=== PATIENT | male | born 1985 | race Caucasian/White ===

== ENCOUNTER 2025-06-07 14:47 | Inpatient (IN) | payer MEDICAID, OTHER ==
[~2025-06-07] VITALS: Ht 170.2 cm; Wt 75.6 kg
--- NOTE | 2025-06-07 15:32 | ED.PDOC ---
Eye-HPI HPI Comments This is a 40 year-old male who presents to the ED with a chief complaint of right upper dental pain as of X1 week ago. Patient reports symptoms worsening since, with additional facial swelling, difficulty swallowing, tooth drainage/ bleeding, fever, R eye puffiness, and N/V as of X2 days ago. Patient reports taking amoxicillin for X5 days with no relief noted. Patient denies any recent trauma, injury, or surgeries. Patient otherwise denies headache, SOB, weakness, chills, hematemesis, or cough. No other complaints or modifying factors at this time. Chief Complaint: Tooth Pain Time Seen by MD: 15:30 Reviewed Notes: Nurses Notes, Medications, Allergies Allergies: Coded Allergies: NO KNOWN ALLERGIES (Unverified , 06/07/25) Information Source: Patient Mode of Arrival: Ambulatory Timing: Weeks Duration: Since onset Prehospital treatment: None Quality: Pain Mouth Location: Right, Upper, Tooth/Teeth (TOOTH 10) Onset: Spontaneous Associated signs and symptoms: Tooth Pain, Other (facial swelling, N/V/D, fever, difficulty swallowing ) Past Medical History PAST MEDICAL HISTORY: Denies Surgical History (Other): Right shoulder x2 Family History Family History: Reviewed,noncontributory to illness, No family hx of Cancer, No family hx of DM, No family hx of Heart bre, No family hx of HTN, No family hx ofKidney bre, No family hx of Liver bre, No family hx of Lung bre, No family hx of Stroke Social History Smoker: Non-Smoker Alcohol: Denies ETOH Use Drugs: Denies Drug Use Lives In: Home Constitutional: reports: fever; denies: chills, diaphoresis, fatigue, malaise, sweats, weakness, others EENTM: reports: mouth pain, others (facial swelling, difficulty swallowing, R eye puffiness ); denies: blurred vision, double vision, ear bleeding, ear discharge, ear drainage, ear pain, ear ringing, eye pain, eye redness, hearing loss, mouth swelling, nasal discharge, nose bleeding, nose congestion, nose pain, photophobia, tearing, throat pain, throat swelling, voice changes Respiratory: denies: cough, hemoptysis, orthopnea, SOB at rest, shortness of breath, SOB with excertion, stridor, wheezing, others Cardiovascular: denies: chest pain, dizzy spells, diaphoresis, Dyspnea on exertion, edema, irregular heart beat, left arm pain, lightheadedness, palpitations, PND, syncope, others Gastrointestinal: reports: nausea, vomiting; denies: abdomen distended, abdominal pain, blood streaked bowels, constipated, diarrhea, dysphagia, difficulty swallowing, hematemesis, melena, poor appetite, poor fluid intake, rectal bleeding, rectal pain, others Genitourinary: denies: burning, dysuria, flank pain, frequency, hematuria, incontinence, penile discharge, penile sore, pain, testicle pain, testicle swelling, urgency, others Neurological: denies: dizziness, fainting, headache, left sided numbness, left sided weakness, numbness, paresthesia, pre-existing deficit, right sided numbness, right sided weakness, seizure, speech problems, tingling, tremors, weakness, others Musculoskeletal: denies: back pain, gout, joint pain, joint swelling, muscle pain, muscle stiffness, neck pain, others Integumetry: denies: bruises, change in color, change in hair/nails, dryness, laceration, lesions, lumps, rash, wounds, others Allergic/Immunocompromised: denies: Difficulty Healing, Frequent Infections, Hives, Itching, others Hematologic/Lymphatic: denies: anemia, blood clots, easy bleeding, easy bruising, swollen glands, others Endocrine: denies: excessive hunger, excessive sweating, excessive thirst, excessive urination, flushing, intolerance to cold, intolerance to heat, u nexplained weight gain, unexplained weight loss, others Psychiatric: denies: anxiety, bipolar disorder, depression, hopeless, panic disorder, schizophrenia, sleepless, suicidal, others All Other Systems: Reviewed and Negative Physical Exam General Appearance: Moderate Distress HEENT: Other (Pupils symmetric. Right mid facial soft tissue swelling and tenderness, multiple right upper anterior dental caries. Right upper gingival edema and bleeding.) Neck: Full Range of Motion, Normal Inspection Respiratory: Lungs Clear, No Accessory Muscle Use, No Respiratory Distress, Normal Breath Sounds Cardiovascular: No Edema, No JVD, Regular Rate/Rhythm Breast Exam: Deferred Gastrointestinal: Non Tender, Soft Genitalia: Deferred Pelvic: Deferred Rectal: Deferred Extremities: Normal inspection, Normal range of motion, Non-tender, No pedal edema Neurologic: Alert (Oriented x4), Normal Affect, Normal Mood, Other (Ambulatory) Cerebellar Function: NOT DONE Reflexes: NOT DONE Skin: Dry, Normal Color, Warm Lymphatic: NOT DONE Was a procedure done? Was a procedure done?: No EENT DIFF Eye: N/A Ear: N/A Nose: N/A Mouth: N/A Sore Throat: N/A Other Differential Diagnosis Dental caries, dental abscess, gingivitis, facial cellulitis/abscess, among others X-Ray, Labs, Meds, VS Vital Signs Date Time Temp Pulse Resp B/P (MAP) Pulse Ox O2 Delivery O2 Flow Rate FiO2 06/07/25 21:47 98.2 78 18 140/89 (106) 99 98.2 06/07/25 18:31 80 18 124/92 06/07/25 18:07 80 18 98 Room Air* 0 21 06/07/25 18:01 80 18 124/92 06/07/25 17:55 98.1 80 18 124/92 (103) 98 98.1 06/07/25 15:40 98.9 94 18 140/83 (102) 98 98.9 06/07/25 15:40 94 18 98 Room Air 06/07/25 14:54 98.9 105 16 166/98 98 98.9 Lab Test 06/07/25 16:10 Range/Units White Blood Count 7.6 4.4-10.8 10^3/uL Red Blood Count 5.47 4.5-5.90 10^6/uL Hemoglobin 16.5 13.5-17.5 g/dL Hematocrit 46.7 41.0-53.0 % Mean Corpuscular Volume 85.4 80.0-100.0 fL Mean Corpuscular Hemoglobin 30.2 28.0-32.0 pg Mean Corpuscular Hemoglobin Concent 35.4 32.0-36.0 g/dL Red Cell Distribution Width 13.5 11.8-14.3 % Platelet Count 258 140-450 10^3/uL Mean Platelet Volume 7.9 6.9-10.8 fL Neutrophils (%) (Auto) 74.2 37.0-80.0 % Lymphocytes (%) (Auto) 13.8 10.0-50.0 % Monocytes (%) (Auto) 10.9 0.0-12.0 % Eosinophils (%) (Auto) 0.7 0.0-7.0 % Basophils (%) (Auto) 0.4 0.0-2.0 % Neutrophils # (Auto) 5.6 1.6-8.6 10 ^3/uL Lymphocytes # (Auto) 1.0 0.4-5.4 10 ^3/uL Monocytes # (Auto) 0.8 0-1.3 10 ^3/uL Eosinophils # (Auto) 0.1 0-0.8 10 ^3/uL Basophils # (Auto) 0 0-0.2 10 ^3/uL Nucleated Red Blood Cells 0.1 % Prothrombin Time 11.7 9.3-11.8 sec Prothrombin Time INR 1.12 0.9-1.15 Activated Partial Thromboplast Time 33.4 24.5-34.5 SEC Sodium Level 139 136-145 mmol/L Potassium Level 4.0 3.5-5.1 mmol/L Chloride Level 101 98-107 mmol/L Carbon Dioxide Level 28 20-31 mmol/L Anion Gap 10 5-15 Blood Urea Nitrogen 9 9-23 mg/dL Creatinine 0.91 0.700-1.30 mg/dL Glomerular Filtration Rate Calc 111 >90 mL/min BUN/Creatinine Ratio 9.9 L 10.0-20.0 Serum Glucose 96 74-106 mg/dL Lactic Acid Level 0.9 0.4-2.0 mmol/L Calcium Level 9.9 8.7-10.4 mg/dL Current Medications Medications (Trade) Dose Ordered Sig/Jason Route Start Time Stop Time Status Last Admin Clindamycin Phosphate 50 ml @ 50 mls/hr ONCE ONCE IV 06/07/25 16:00 06/07/25 16:59 DC 06/07/25 18:02 Morphine Sulfate 4 mg ONCE ONCE IV 06/07/25 16:00 06/07/25 16:01 DC 06/07/25 18:01 Ondansetron HCl (Zofran) 4 mg ONCE ONCE IV 06/07/25 16:00 06/07/25 16:01 DC 06/07/25 18:01 Lactated Ringer's 2,000 ml @ 2,000 mls/hr ONCE ONCE IV 06/07/25 16:00 06/07/25 16:59 DC 06/07/25 18:02 PROCEDURE(s): FAC2C - MAXILLOFACIAL WITHOUT REASON: R upper gingival discharge and R facial swelling ORDER NUMBER(s): [id number], ACCESSION NUMBER(s): [id number] Procedure: CT MAXILLOFACIAL WITHOUT Study Date and Requested Time: 06/07/2025 04:09 PM History: R upper gingival discharge and R facial swelling Comparison: None Dose: CTDI: 63.33 mGy DLP: 63.33 mGycm Technique: Multiplanar images obtained through the face without intravenous contrast. Findings: Streak artifact from dental amalgam limits evaluation of the adjacent structure s. There is right maxillary lateral incisor and left maxillary canine periapical lucencies which may represent dental caries. Asymmetric soft tissue edema /thickening of the right anterior maxilla, extending superiorly to the right infraorbital region and inferiorly to the right submandibular region. There is also associated Asymmetric Right-sided soft tissue edema posterior to the anterior maxillary alveolus . There is no associated drainable fluid collection. The paranasal sinuses and visualized mastoids are clear. Fracture of the maxillary spine of unknown chronicity. The orbits and globes are unremarkable. Nasal septum is relatively midline. No nasal masses are noted. Nasopharynx, oropharynx and visualized hypopharynx are unremarkable. Mild p rominence of the lingual tonsils. Impression: There is right maxillary lateral incisor dental caries with associated adjacent soft tissue edema extending superiorly to the right infraorbital region and inferiorly to the mandibular region with No obvious Drainable fluid collection noted. Periapical lucency involving the left maxillary canine which may represent dental caries versus periapical cyst. No significant associated adjacent edema. X-Ray, Labs, Meds, VS Comment 40-year-old male with no significant past medical history complaining of right upper tooth pain and right facial swelling despite taking amoxicillin. Vitals remarkable for heart rate 105, BP 166/98 Exam remarkable for right upper gingival bleeding, tenderness, swelling, multiple right upper dental caries, right mid facial and infraorbital soft tissue swelling and tenderness Rhythm strip independently interpreted by me: Sinus tach, rate 105, no ectopy. CT maxillofacial Impression: There is right maxillary lateral incisor dental caries with associated adjacent soft tissue edema extending superiorly to the right infraorbital region and inferiorly to the mandibular region with No obvious Drainable fluid collection noted. Periapical lucency involving the left maxillary canine which may represent dental caries versus periapical cyst. No significant associated adjacent edema. CBC, basic metabolic panel, coagulation panel and lactic acid level reviewed and unremarkable Patient treated with the following in the ED: 1 L LR bolus, morphine 4 mg IV, Zofran 4 mg IV, clindamycin 900 mg IV On re-evaluation, patient states pain has improved. Vitals were stable. Plan is to admit the patient for IV antibiotic treatment of facial cellulitis. Once facial cellulitis has improved, patient may follow-up with dental as an outpatient. Images Reviewed?: Images reviewed and evaluated by me Time of 1ST Reevaluation: 16:04 Reevaluation 1ST: Unchanged Patient Education/Counseling: Diagnosis, Treatment, Need For Follow Up Family Education/Counseling: No Family Present Medical Screening: No EMC Exist At This Time SEPSIS Sepsis Screen Date sepsis recognized/suspect: Jun 07, 2025 Time Sepsis recognized/suspect: 1453 Recent Procedure: No On Antibiotic Therapy: No Respiratory Rate >20: No Heart Rate >90: Yes Temp<36 C (96.8 F) or >38.3 C: No SBP <90 or MAP <65 mmHG: No New Acute Mental Status Change: No Is the patient on CPAP, BIPAP,: No SEPSIS EXCLUSION NOTE: Sepsis Exclusion Note: Patient presents with SIRS criteria, but the SIRS response is attributed to [pain ], not sepsis. Sepsis bundle is not initiated at this time, due to this reason. Further management will focus on the treatment of the above condition (s). Physician Orders Urinalysis (06/07/25 15:48) Blood Culture (06/07/25 15:48) Notify Md If Map <65 Or Bp<90 (06/07/25 15:48) If Map<65 Start Vasopressor (06/07/25 15:48) Sepsis Reassesment After Fluid (06/07/25 16:48) Maxillofacial Without (06/07/25 15:48) Notify Md If Map <65 Or Bp<90 (06/07/25 15:48) If Map<65 Start Vasopressor (06/07/25 15:48) Sepsis Reassesment After Fluid (06/07/25 16:48) Vital Signs Date Time Temp Pulse Resp B/P (MAP) Pulse Ox O2 Delivery O2 Flow Rate FiO2 06/07/25 21:47 98.2 78 18 140/89 (106) 99 98.2 06/07/25 18:31 80 18 124/92 06/07/25 18:07 80 18 98 Room Air* 0 21 06/07/25 18:01 80 18 124/92 06/07/25 17:55 98.1 80 18 124/92 (103) 98 98.1 06/07/25 15:40 98.9 94 18 140/83 (102) 98 98.9 06/07/25 15:40 94 18 98 Room Air 06/07/25 14:54 98.9 105 16 166/98 98 98.9 Laboratory Tests Test 06/07/25 16:10 Lactic Acid Level 0.9 mmol/L (0.4-2.0) White Blood Count 7.6 10^3/uL (4.4-10.8) Medications Medications Dose Ordered Sig/Jason Route Start Time Stop Time Status Last Admin Dose Admin Clindamycin Phosphate 50 ml @ 50 mls/hr ONCE ONCE IV 06/07/25 16:00 06/07/25 16:59 DC 06/07/25 18:02 Lactated Ringer's 2,000 ml @ 2,000 mls/hr ONCE ONCE IV 06/07/25 16:00 06/07/25 16:59 DC 06/07/25 18:02 Morphine Sulfate 4 mg ONCE ONCE IV 06/07/25 16:00 06/07/25 16:01 DC 06/07/25 18:01 Ondansetron HCl 4 mg ONCE ONCE IV 06/07/25 16:00 06/07/25 16:01 DC 06/07/25 18:01 Departure 1 Departure Time of Disposition: 18:00 Impression: Primary Impression: Facial cellulitis Additional Impression: Dental infection Disposition: ADMITTED INPATIENT Admit to: Med Surg Condition: Guarded Critical Care Note Critical Care Time?: No Stability Stability form required: No Heart Score Heart Score: Heart Score Response (Comments) Value History N/A 0 EKG N/A 0 Age N/A 0 Risk Factors N/A 0 Troponin N/A 0 Total 0 I personally scribed for SANJUANA XIAO MD ([email or web address]) on 06/07/25 at 15:32. Electronically submitted by Shhala Bui (AMIE). I personally scribed for SANJUANA XIAO MD ([facility]) on 06/07/25 at 15:5 3. Electronically submitted by Shahla Bui (AMIE). I personally scribed for SANJUANA XIAO MD ([facility]) on 06/07/25 at 15:55. Electronically submitted by Shahla Bui (AMIE). SANJUANA XIAO MD Jun 07, 2025 15:32
[2025-06-07 16:38] LABS: Hematocrit 46.7 % (41.0-53.0); Hemoglobin 16.5 g/dL (13.5-17.5); Mean Corpuscular Hemoglobin 30.2 pg (28.0-32.0); Mean Corpuscular Volume 85.4 fL (80.0-100.0); Nucleated Red Blood Cells % 0.1 %
[2025-06-07 16:41] LABS: Chloride 101 mmol/L (98-107); Potassium 4.0 mmol/L (3.5-5.1); Sodium 139 mmol/L (136-145)
[2025-06-07 16:42] LABS: Anion Gap 10 (5-15); Calcium 9.9 mg/dL (8.7-10.4); Carbon Dioxide 28 mmol/L (20-31)
[2025-06-07 16:47] LABS: BUN/Creatinine Ratio 9.9 (10.0-20.0); Blood Urea Nitrogen 9 mg/dL (9-23); Glucose 96 mg/dL (74-106)
[2025-06-07 16:56] LABS: INR 1.12 (0.9-1.15); Partial Thromboplastin Time 33.4 SEC (24.5-34.5); Prothrombin Time 11.7 sec (9.3-11.8)
--- NOTE | 2025-06-07 17:32 | DVH ---
Procedure: CT MAXILLOFACIAL WITHOUT Study Date and Requested Time: 2024 04:09 PM History: R upper gingival discharge and R facial swelling Comparison: None Dose: CTDI: 63.33 mGy DLP: 63.33 mGycm Technique: Multiplanar images obtained through the face without intravenous contrast. Findings: Streak artifact from dental amalgam limits evaluation of the adjacent structures. There is right maxillary lateral incisor and left maxillary canine periapical lucencies which may rep resent dental caries. Asymmetric soft tissue edema /thickening of the right anterior maxilla, extendi ng superiorly to the right infraorbital region and inferiorly to the right submandibular region. T here is also associated Asymmetric Right-sided soft tissue edema posterior to the anterior maxillary alveolus . There is no associated drainable fluid collection. The paranasal sinuses and visualized mastoids are clear. Fracture of the maxillary spine of unknown chronicity. The orbits and globes are unremarkable. Nasal septum is relatively midline. No nasal masses are noted. Nasopharynx, oropharynx and visualized hypopharynx are unremarkable. Mild prominence of the lingual tonsils. Impression: There is right maxillary lateral incisor dental caries with associated adjacent soft tissue edema ext ending superiorly to the right infraorbital region and inferiorly to the mandibular region with No ob vious Drainable fluid collection noted. Periapical lucency involving the left maxillary canine which may represent dental caries versus peria pical cyst. No significant associated adjacent edema.
[2025-06-07] MEDS: LACTATED RINGER'S 2,000 ML IV ONE ×2 (17:45→18:02)
[2025-06-07] MEDS: ONDANSETRON HCL 4 MG/2 ML VIAL IV ONE (18:01)
[2025-06-07] MEDS: MORPHINE SULFATE 4 MG/ML SYR/VIAL IV ONE (18:01)
[2025-06-07] MEDS: CLINDAMYCIN 900MG IV 50 ML IV ONE (18:02)
[2025-06-07 18:07] VITALS: PULSE 80; RESP 18; O2SAT 98
[2025-06-07 21:47] VITALS: BP 140/89; PULSE 78; RESP 18; TEMP 98.2; O2SAT 99
[2025-06-08] MEDS ORDERED: ACETAMINOPHEN 325 MG TAB PO PRN
[2025-06-08] MEDS ORDERED: DOCUSATE SOD 100 MG CAP PO PRN
[2025-06-08] MEDS ORDERED: MORPHINE SULFATE INJ 2 MG/ml SYRG IV PRN
[2025-06-08] MEDS ORDERED: ONDANSETRON HCL 4 MG/2 ML VIAL IV PRN
[2025-06-08] MEDS: HYDROcodone-ACET 5/325MG TAB PO PRN (01:59)
--- NOTE | 2025-06-08 06:22 | DVHHPRES ---
History of Present Illness Resident Creating Document: TALI MELTON RESIDENT History of Present Illness 40 -year-old male with past history of anxiety/PTSD, scapular dyskinesis and thoracic outlet syndrome presented with complaints of pain and swelling in the right side of face since 2 days. He lost an incisor tooth 2 months ago. He now has pain around the area. He states that he had an episode of hematemesis today. He also complains of difficulty swallowing due to an obstruction in his throat, associated with sour taste in his mouth. PSHx: Surgery for clavicle fracture in April Family history: Patient denies Social history: Denies alcohol, smoking and recreational drugs Home medication: [place] Allergic history: Patient denies Review of Systems Review of Systems General: patient denies fever, fatigue, weaknes, sweating, any recent changes in appetite and weight HEENT: Complains of pain and swelling in the face, sour taste in the mouth, difficulty swallowing No headaches, visiual changes, hearing loss, tinnitus, nasal congestion and discharge. Cardiovascular: Denies chest pain, palpitations, dyspnea on exertion, orthopnea, or claudication. Respiratory: No cough, and wheezing. Gastrointestinal: Denies nausea, vomiting, dysphagia, odynophagia, heartburn, ab dominal pain, flatulence, bloating, diarrhea, constipation, change in stool, or blood in stool. Genitourinary: No dysuria, hematuria, discharge, frequency, urgency, nocturia, incontinence, and urinary retention. Endocrine: No heat or cold intolerance, polydipsia, polyuria, and polyphagia. Neurological: No dizziness, extremity weakness and numbness, tremors, gait disturbance, seizures, and memory impairment. Psychiatric: Denies depression, anxiety,or insomnia. Musculoskeletal: Denies neck pain, stiffness and swelling, back pain, muscle weakness, joint pain, stiffness, swelling, or limited range of motion. Skin: No rashes, itching, skin lesion, changes in hair, nail, skin texture and breast. Hematologic/Lymphatic: Denies easy bruising, bleeding tendencies, or lymph node enlargement. Allergies: Coded Allergies: NO KNOWN ALLERGIES (Unverified , 06/07/25) Medications Current Medications Medications Dose Ordered Sig/Jason Route Start Time Stop Time Status Last Admin Dose Admin Acetaminophen 325 mg Q4HP PRN PO 06/08/25 00:00 Acetaminophen/ Hydrocodone Bitart 1 tab Q4HP PRN PO 06/08/25 00:00 06/08/25 01:59 1 TAB Ondansetron HCl 4 mg Q4HP PRN IV 06/08/25 00:00 Docusate Sodium 100 mg BIDPRN PRN PO 06/08/25 00:00 Morphine Sulfate 2 mg Q4HPRN PRN IV 06/08/25 00:00 Exam Vital Signs Vital Signs Date Time Temp Pulse Resp B/P (MAP) Pulse Ox O2 Delivery O2 Flow Rate FiO2 06/07/25 21:47 98.2 78 18 140/89 (106) 99 98.2 06/07/25 18:07 Room Air* 0 21 Exam General Appearance: Alert, Oriented X3, Cooperative, No acute distress HEENT: Tenderness in the right maxillary sinus area, Respiratory: Clear to auscultation, Normal air movement Cardiovascular: Regular rate, Normal S1, Normal S2, No murmurs, no chest wall tenderness Abdominal: Normal bowel sounds, Soft, No tenderness, No hepatospenomegaly, No masses Extremities: No clubbing, No cyanosis, No edema, Normal pulses, No tenderness/swelling Skin: No rashes, No breakdown, No significant lesion Neuro: Normal gait, Normal speech, Strength at 5/5 X4 ext, Normal tone, Sensat ion intact, Cranial nerves 3-12 NL, Reflexes 2+ Psych/Mental Status: Mental status NL, Mood NL Labs/Xrays Labs Test 06/07/25 16:10 Range/Units White Blood Count 7.6 4.4-10.8 10^3/uL Red Blood Count 5.47 4.5-5.90 10^6/uL Hemoglobin 16.5 13.5-17.5 g/dL Hematocrit 46.7 41.0-53.0 % Mean Corpuscular Volume 85.4 80.0-100.0 fL Mean Corpuscular Hemoglobin 30.2 28.0-32.0 pg Mean Corpuscular Hemoglobin Concent 35.4 32.0-36.0 g/dL Red Cell Distribution Width 13.5 11.8-14.3 % Platelet Count 258 140-450 10^3/uL Mean Platelet Volume 7.9 6.9-10.8 fL Neutrophils (%) (Auto) 74.2 37.0-80.0 % Lymphocytes (%) (Auto) 13.8 10.0-50.0 % Monocytes (%) (Auto) 10.9 0.0-12.0 % Eosinophils (%) (Auto) 0.7 0.0-7.0 % Basophils (%) (Auto) 0.4 0.0-2.0 % Neutrophils # (Auto) 5.6 1.6-8.6 10 ^3/uL Lymphocytes # (Auto) 1.0 0.4-5.4 10 ^3/uL Monocytes # (Auto) 0.8 0-1.3 10 ^3/uL Eosinophils # (Auto) 0.1 0-0.8 10 ^3/uL Basophils # (Auto) 0 0-0.2 10 ^3/uL Nucleated Red Blood Cells 0.1 % Prothrombin Time 11.7 9.3-11.8 sec Prothrombin Time INR 1.12 0.9-1.15 Activated Partial Thromboplast Time 33.4 24.5-34.5 SEC Sodium Level 139 136-145 mmol/L Potassium Level 4.0 3.5-5.1 mmol/L Chloride Level 101 98-107 mmol/L Carbon Dioxide Level 28 20-31 mmol/L Anion Gap 10 5-15 Blood Urea Nitrogen 9 9-23 mg/dL Creatinine 0.91 0.700-1.30 mg/dL Glomerular Filtration Rate Calc 111 >90 mL/min BUN/Creatinine Ratio 9.9 L 10.0-20.0 Serum Glucose 96 74-106 mg/dL Lactic Acid Level 0.9 0.4-2.0 mmol/L Calcium Level 9.9 8.7-10.4 mg/dL SEPSIS Sepsis Screen Date sepsis recognized/suspect: Jun 07, 2025 Time Sepsis recognized/suspect: 1808 Recent Procedure: No On Antibiotic Therapy: No Respiratory Rate >20: No Heart Rate >90: No Temp<36 C (96.8 F) or >38.3 C: No SBP <90 or MAP <65 mmHG: No New Acute Mental Status Change: No Is the patient on CPAP, BIPAP,: No Physician Orders Admit (06/07/25 23:56) Allergies (06/07/25 23:56) Code Status (06/07/25 23:56) Acetaminophen Tablet (Tylenol Tablet) (06/08/25 00:00) Hydrocodone-Acet 5/325mg Tab ([place] 5/32 (06/08/25 00:00) Ondansetron Hcl (Zofran) (06/08/25 00:00) Docusate Sodium Capsule (Colace Capsule) (06/08/25 00:00) Condition: Fair (06/07/25 23:56) Morphine Sulfate Injection (06/08/25 00:00) Vital Signs Date Time Temp Pulse Resp B/P (MAP) Pulse Ox O2 Delivery O2 Flow Rate FiO2 06/07/25 21:47 98.2 78 18 140/89 (106) 99 98.2 Medications Medications Dose Ordered Sig/Jason Route Start Time Stop Time Status Last Admin Dose Admin Acetaminophen/ Hydrocodone Bitart 1 tab Q4HP PRN PO 06/08/25 00:00 06/08/25 01:59 1 TAB Assessment/Plan Assessment/Plan #Possible facial cellulitis-IV antibiotics, periodic check for abscess formation. #Dental caries- high risk of transmission due to proximity to dangerous face. #History of anxiety/PTSD-psychiatry consult #History of scapular dyskinesia-continue home medications #History of thoracic outlet syndrome-continue home medications #History of surgery for clavicle fracture Plan discussed with: Patient, Spouse My Orders Orders - TALI MELTON RESIDENT Procedure Category Date Status Time Admit ADMIT 06/07/25 Transmitted 23:56 Allergies DAVID 06/07/25 In Process 23:56 Code Status CODE 06/07/25 Transmitted 23:56 Acetaminophen Tablet PHA 06/08/25 In Process (Tylenol Tablet) 00:00 Hydrocodone-Acet PHA 06/08/25 In Process 5/325mg Tab ([place] 00:00 Ondansetron Hcl PHA 06/08/25 In Process (Zofran) 00:00 Docusate Sodium PHA 06/08/25 In Process Capsule (Colace 00:00 Condition: Fair DAVID 06/07/25 In Process 23:56 Morphine Sulfate PHA 06/08/25 In Process Injection 00:00 Date of Service: Jun 07, 2025 Billing Provider: NEREIDA BEAVERS MD Common Visit Codes: 85066-[place] INP/OBS CARE (HIGH) Secondary Visit Codes: 64279-[id number] CARE PLAN 30 MINUTES TALI MELTON RESIDENT Jun 08, 2025 06:04
--- NOTE | 2025-06-08 06:24 | DVHDSRES ---
Discharge Summary Date of Admission Resident Creating Document: TALI MELTON RESIDENT Jun 07, 2025 at 23:56 Date of Discharge: Jun 08, 2025 Admitting Diagnosis Facial cellulitis Labs/Diagnostic Data: Laboratory Results Test 06/07/25 16:10 White Blood Count 7.6 10^3/uL (4.4-10.8) Red Blood Count 5.47 10^6/uL (4.5-5.90) Hemoglobin 16.5 g/dL (13.5-17.5) Hematocrit 46.7 % (41.0-53.0) Mean Corpuscular Volume 85.4 fL (80.0-100.0) Mean Corpuscular Hemoglobin 30.2 pg (28.0-32.0) Mean Corpuscular Hemoglobin Concent 35.4 g/dL (32.0-36.0) Red Cell Distribution Width 13.5 % (11.8-14.3) Platelet Count 258 10^3/uL (140-450) Mean Platelet Volume 7.9 fL (6.9-10.8) Neutrophils (%) (Auto) 74.2 % (37.0-80.0) Lymphocytes (%) (Auto) 13.8 % (10.0-50.0) Monocytes (%) (Auto) 10.9 % (0.0-12.0) Eosinophils (%) (Auto) 0.7 % (0.0-7.0) Basophils (%) (Auto) 0.4 % (0.0-2.0) Neutrophils # (Auto) 5.6 10 ^3/uL (1.6-8.6) Lymphocytes # (Auto) 1.0 10 ^3/uL (0.4-5.4) Monocytes # (Auto) 0.8 10 ^3/uL (0-1.3) Eosinophils # (Auto) 0.1 10 ^3/uL (0-0.8) Basophils # (Auto) 0 10 ^3/uL (0-0.2) Nucleated Red Blood Cells 0.1 % Prothrombin Time 11.7 sec (9.3-11.8) Prothrombin Time INR 1.12 (0.9-1.15) Activated Partial Thromboplast Time 33.4 SEC (24.5-34.5) Sodium Level 139 mmol/L (136-145) Potassium Level 4.0 mmol/L (3.5-5.1) Chloride Level 101 mmol/L (98-107) Carbon Dioxide Level 28 mmol/L (20-31) Anion Gap 10 (5-15) Blood Urea Nitrogen 9 mg/dL (9-23) Creatinine 0.91 mg/dL (0.700-1.30) Glomerular Filtration Rate Calc 111 mL/min (>90) BUN/Creatinine Ratio 9.9 (10.0-20.0) Serum Glucose 96 mg/dL (74-106) Lactic Acid Level 0.9 mmol/L (0.4-2.0) Calcium Level 9.9 mg/dL (8.7-10.4) Other Laboratory Tests 06/07/25 16:10 Brief Hx & Hospital Course: 40 -year-old male with past history of anxiety/PTSD, scapular dyskinesis and thoracic outlet syndrome presented with complaints of pain and swelling in the right side of face since 2 days. He lost an incisor tooth 2 months ago. He now has pain around the area. He states that he had an episode of hematemesis today. He also complains of difficulty swallowing due to an obstruction in his throat, associated with sour taste in his mouth. Patient was admitted to the hospital. He left against medical advice. Condition at Discharge: Undetermined Final Diagnosis/Problems List #Possible facial cellulitis #Dental caries #History of anxiety/PTSD #History of scapular dyskinesia #History of thoracic outlet syndrome #History of surgery for clavicle fracture Discharge Disposition: AMA Discharge Statement: "Patient was advised to return to the ER or call 911 if any headaches, dizziness, shortness of breath, chest pain, abdominal pain, bleeding, fevers, or worsening of medical condition. Patient was counseled about treatment plan, medications, possible side effects, patientverbalized understanding. All questions were answered to the best of my ability. This discharge took greater then 30 minutes in planning, reviewing documentation, counseling the patient, and discussing with other team members." ASSESSMENT ASSESSMENT Assessment TALI MELTON RESIDENT Jun 08, 2025 06:24
== END 2025-06-08 02:15 | disposition left against medical advice (07) | DRG 383 ==
LOC: ER 14:47 → OVERFLOW 23:56
PROVIDERS: ADMIT Nurse Practitioner Acute Care; ATTEND Nurse Practitioner Acute Care
DX: L03.211 Cellulitis of face (principal); F43.10 Post-traumatic stress disorder, unspecified; K04.7 Periapical abscess without sinus; R13.10 Dysphagia, unspecified; Z53.29 Procedure and treatment not carried out because of patient's decision for other reasons; Z79.899 Other long term (current) drug therapy
CPT/HCPCS: 36415; 70486; 80048; 83605; 85025; 85610; 85730; 87040; 96365; 96375; G0378; J2405; J3490

== ENCOUNTER 2025-06-19 11:30 | Emergency (ER) | payer MEDICAID ==
[~2025-06-19] VITALS: Ht 170.2 cm; Wt 70.4 kg
--- NOTE | 2025-06-19 11:50 | ED.PDOC ---
General HPI Comments 40 y.o male with PMHx of kidney stones, presents to the ED for a chief complaint of left sided flank pain associated with hematuria, urinary retention, nausea and vomiting x 1-2 days. Patient describes pain sharp, constant, non radiating with a pain rate of 10/10. He mentions dribbling with no full urine output. Patient mentions similar symptoms prior given hx of kidney stones with Lithotripsy done. Last episode of kidney stones was at the age of 23. He denies any fever, chills, abdominal pain. Chief Complaint: Urinary Time Seen by MD: 11:40 Reviewed notes: Nurses Notes, Medications, Allergies Allergies: Coded Allergies: NO KNOWN ALLERGIES (Unverified , 06/07/25) Information Source: Patient Mode of Arrival: Ambulatory Severity: Moderate Inability to void: Mild Timing: Days (1-2) Duration: Since onset Onset: Spontaneous Symptoms: Hematuria, Inability to void History of: Kidney stone Location: (L)Flank Penile discharge: None associated signs and symptoms: Hematuria, Inability to Void Past Medical History PAST MEDICAL HISTORY: Denies Family History Family History: Reviewed,noncontributory to illness, No family hx of Cancer, No family hx of DM, No family hx of Heart bre, No family hx of HTN, No family hx ofKidney bre, No family hx of Liver bre, No family hx of Lung bre, No family hx of Stroke Social History Smoker: Non-Smoker Alcohol: Denies ETOH Use Drugs: Denies Drug Use Lives In: Home Constitutional: denies: chills, diaphoresis, fatigue, fever, malaise, sweats, weakness, others EENTM: denies: blurred vision, double vision, ear bleeding, ear discharge, ear drainage, ear pain, ear ringing, eye pain, eye redness, hearing loss, mouth pain, mouth swelling, nasal discharge, nose bleeding, nose congestion, nose pain, photophobia, tearing, throat pain, throat swelling, voice changes, others Respiratory: denies: cough, hemoptysis, orthopnea, SOB at rest, shortness of breath, SOB with excertion, stridor, wheezing, others Cardiovascular: denies: chest pain, dizzy spells, diaphoresis, Dyspnea on exertion, edema, irregular heart beat, left arm pain, lightheadedness, palpitations, PND, syncope, others Gastrointestinal: denies: abdomen distended, abdominal pain, blood streaked bowels, constipated, diarrhea, dysphagia, difficulty swallowing, hematemesis, melena, nausea, poor appetite, poor fluid intake, rectal bleeding, rectal pain, vomiting, others Genitourinary: reports: flank pain, hematuria; denies: burning, dysuria, frequency, incontinence, penile discharge, penile sore, pain, testicle pain, testicle swelling, urgency, others Neurological: denies: dizziness, fainting, headache, left sided numbness, left sided weakness, numbness, paresthesia, pre-existing deficit, right sided numbness, right sided weakness, seizure, speech problems, tingling, tremors, weakness, others Musculoskeletal: denies: back pain, gout, joint pain, joint swelling, muscle pain, muscle stiffness, neck pain, others Integumetry: denies: bruises, change in color, change in hair/nails, dryness, laceration, lesions, lumps, rash, wounds, others Allergic/Immunocompromised: denies: Difficulty Healing, Frequent Infections, Hives, Itching, others Hematologic/Lymphatic: denies: anemia, blood clots, easy bleeding, easy brui sing, swollen glands, others Endocrine: denies: excessive hunger, excessive sweating, excessive thirst, ex cessive urination, flushing, intolerance to cold, intolerance to heat, unexplained weight gain, unexplained weight loss, others Psychiatric: denies: anxiety, bipolar disorder, depression, hopeless, panic disorder, schizophrenia, sleepless, suicidal, others All Other Systems: Reviewed and Negative Physical Exam General Appearance: Moderate Distress HEENT: Normal ENT Inspection, Pharynx Normal, TMs Normal Neck: Full Range of Motion, Non-Tender, Normal, Normal Inspection Respiratory: Chest Non-Tender, Lungs Clear, No Accessory Muscle Use, No Respiratory Distress, Normal Breath Sounds Cardiovascular: No Edema, No JVD, No Murmur, No Gallop, Normal Peripheral Pulses, Regular Rate/Rhythm Breast Exam: Deferred Gastrointestinal: Diffuse Genitalia: Deferred Pelvic: Deferred Rectal: Deferred Extremities: No calf tenderness, Normal capillary refill, Normal inspection, Normal range of motion, Non-tender, No pedal edema Musculoskeletal : Apperance: Normal Neurologic: Alert, road crossing guard II-XII nml as Tested, No Motor Deficits, Normal Affect, Normal Mood, No Sensory Deficits Cerebellar Function: NOT DONE Reflexes: NOT DONE Skin: Normal Color Peripheral Pulses: 3+ Radial (R), 3+ Radial (L) Lymphatic: No Adenopathy Was a procedure done? Was a procedure done?: No Differential Diagnosis Kidney stone (Female): N/A Kidney stone (Male): HNP, Pyelonephritis, Strain, Urinary obstruction, Urolithiasis, Urinary tract infection X-Ray, Labs, Meds, VS Vital Signs Date Time Temp Pulse Resp B/P (MAP) Pulse Ox O2 Delivery O2 Flow Rate FiO2 06/19/25 14:16 63 18 99 Room Air* 0 21 06/19/25 14:16 98.2 63 18 141/84 (103) 99 98.2 06/19/25 14:12 63 18 141/84 06/19/25 12:20 97.6 64 16 150/95 (113) 95 97.6 06/19/25 11:31 97.6 64 16 150/95 95 97.6 Lab Test 06/19/25 11:48 Range/Units White Blood Count 9.8 4.4-10.8 10^3/uL Red Blood Count 5.24 4.5-5.90 10^6/uL Hemoglobin 15.5 13.5-17.5 g/dL Hematocrit 44.9 41.0-53.0 % Mean Corpuscular Volume 85.8 80.0-100.0 fL Mean Corpuscular Hemoglobin 29.5 28.0-32.0 pg Mean Corpuscular Hemoglobin Concent 34.4 32.0-36.0 g/dL Red Cell Distribution Width 13.5 11.8-14.3 % Platelet Count 335 140-450 10^3/uL Mean Platelet Volume 7.2 6.9-10.8 fL Neutrophils (%) (Auto) 76.3 37.0-80.0 % Lymphocytes (%) (Auto) 15.7 10.0-50.0 % Monocytes (%) (Auto) 6.6 0.0-12.0 % Eosinophils (%) (Auto) 1.1 0.0-7.0 % Basophils (%) (Auto) 0.3 0.0-2.0 % Neutrophils # (Auto) 7.5 1.6-8.6 10 ^3/uL Lymphocytes # (Auto) 1.5 0.4-5.4 10 ^3/uL Monocytes # (Auto) 0.6 0-1.3 10 ^3/uL Eosinophils # (Auto) 0.1 0-0.8 10 ^3/uL Basophils # (Auto) 0 0-0.2 10 ^3/uL Nucleated Red Blood Cells 0.0 % Sodium Level 142 136-145 mmol/L Potassium Level 4.1 3.5-5.1 mmol/L Chloride Level 103 98-107 mmol/L Carbon Dioxide Level 30 20-31 mmol/L Anion Gap 9 5-15 Blood Urea Nitrogen 8 L 9-23 mg/dL Creatinine 0.93 0.700-1.30 mg/dL Glomerular Filtration Rate Calc 108 >90 mL/min BUN/Creatinine Ratio 8.6 L 10.0-20.0 Serum Glucose 110 H 74-106 mg/dL Calcium Level 9.5 8.7-10.4 mg/dL Current Medications Medications (Trade) Dose Ordered Sig/Jason Route Start Time Stop Time Status Last Admin Sodium Chloride 1,000 ml @ 1,000 mls/hr Q1H ONCE IV 06/19/25 11:45 06/19/25 12:44 DC 06/19/25 12:26 Ketorolac Tromethamine (Toradol Injection) 30 mg ONCE ONCE IV 06/19/25 11:45 06/19/25 11:46 DC 06/19/25 12:26 Tamsulosin HCl (Flomax) 0.4 mg ONCE ONCE PO 06/19/25 13:45 06/19/25 13:46 DC 06/19/25 14:11 Morphine Sulfate 4 mg ONCE ONCE IV 06/19/25 13:45 06/19/25 13:46 DC 06/19/25 14:12 Ondansetron HCl (Zofran) 4 mg ONCE ONCE IV 06/19/25 13:45 06/19/25 13:46 DC 06/19/25 14:[address] [address] Ph: [phone] DIAGNOSTIC IMAGING Diagnostic Imaging Report : [id number] Signed PATIENT: KARLEE HUFF ACCT: [id number] UNIT: [id number] : 1985 LOC: ER ROOM / BED: / AGE / SEX: 40 / M ADM STATUS: REG ER SERVICE 1142 ORDERING PHYSICIAN: MANISHA BRISENO MD PROCEDURE(s): ABPL - CT AB PEL WO CON-NO ORAL OR IV REASON: stone ORDER NUMBER(s): [id number], ACCESSION NUMBER(s): [id number] CLINICAL INFORMATION: Renal stone. TECHNIQUE: Axial CT images of the abdomen and pelvis were obtained without IV contrast. Coronal and sagittal reformatted images were obtained, reviewed, and stored. Evaluation of the parenchymal organs is limited without IV contrast. Evaluation of the bowel and mesentery is limited without oral contrast. All CT scans at this medical facility are performed using dose modulation techniques as appropriate to a performed exam including the following: Automated exposure control was utilized; adjustment of the MA and/or KV according to patient size; and use of iterative reconstruction technique. CTDIvol = 10.48 mGy DLP = 604.17 mGy-cm COMPARISON: None. FINDINGS: There is prominent beam hardening artifact and mild motion artifact limiting evaluation. Lung bases: Dependent atelectasis in the lower lobes. Liver: Grossly unremarkable given the limitations of the examination. Biliary: No calcified gallstones or biliary ductal dilatation. Spleen: Unremarkable. Pancreas: Grossly unremarkable in its noncontrast enhanced appearance. Adrenal glands: Unremarkable. No mass. Kidneys: Mild to moderate left hydronephrosis and hydroureter with 4 mm obstructing calculus at the left ureterovesical junction. Questionable punctate nonobstructing left renal calculus at the mid to upper pole of the left kidney. There is are a few small nonobstructing right renal calculi, with the largest measuring up to 2 mm. Aorta/Vascular: No aneurysm or significant calcification. Retroperitoneum: No mass or lymphadenopathy. Bowel/mesentery: No small bowel obstruction. No free air or free fluid. Appendix is visualized and appears unremarkable. Pelvic organs: Grossly unremarkable. Bladder: Moderate circumferential thickening of the bladder wall. Obstructing calculus at the left ureterovesical junction as described above. Abdominal wall: Small fat containing indirect left inguinal hernia extending into the inguinal canal. Bones: No acute fracture or suspicious intraosseous lesion. IMPRESSION: 1. [id number] left hydronephrosis with obstructing 4 mm calculus in the left ureterovesical junction. 2. Additional small bilateral nonobstructing renal calculi. 3. Moderate circumferential thickening of the bladder wall. Correlate clinically to exclude cystitis. 4. Small fat containing indirect left inguinal hernia. 5. Additional findings as described above. Patient alert. Came in because of flank pain. Vitals stable. Answering all questions. Establish intravenous access. Was given fluids. Was given Toradol. CT scan of the abdomen reviewed does show kidney stone. Hydronephrosis. Had to give morphine. Was given Zofran. WBC within normal limits. Hemoglobin within normal limits. Blood pressure elevated. Explained to the patient. Continue monitoring. Time of 1ST Reevaluation: 11:50 Reevaluation 1ST: Unchanged Patient Education/Counseling: Diagnosis, Treatment, Prognosis Family Education/Counseling: No Family Present SEPSIS Sepsis Screen Date sepsis recognized/suspect: Jun 19, 2025 Time Sepsis recognized/suspect: 1131 Recent Procedure: No On Antibiotic Therapy: No Respiratory Rate >20: No Heart Rate >90: No Temp<36 C (96.8 F) or >38.3 C: No SBP <90 or MAP <65 mmHG: No New Acute Mental Status Change: No Is the patient on CPAP, BIPAP,: No Physician Orders Urinalysis (06/19/25 11:41) Ct Ab Pel Wo Con-No Oral Or Iv (06/19/25 11:42) Vital Signs Date Time Temp Pulse Resp B/P (MAP) Pulse Ox O2 Delivery O2 Flow Rate FiO2 06/19/25 14:16 63 18 99 Room Air* 0 21 06/19/25 14:16 98.2 63 18 141/84 (103) 99 98.2 06/19/25 14:12 63 18 141/84 06/19/25 12:20 97.6 64 16 150/95 (113) 95 97.6 06/19/25 11:31 97.6 64 16 150/95 95 97.6 Laboratory Tests Test 06/19/25 11:48 White Blood Count 9.8 10^3/uL (4.4-10.8) Medications Medications Dose Ordered Sig/Jason Route Start Time Stop Time Status Last Admin Dose Admin Ketorolac Tromethamine 30 mg ONCE ONCE IV 06/19/25 11:45 06/19/25 11:46 DC 06/19/25 12:26 Morphine Sulfate 4 mg ONCE ONCE IV 06/19/25 13:45 06/19/25 13:46 DC 06/19/25 14:12 Ondansetron HCl 4 mg ONCE ONCE IV 06/19/25 13:45 06/19/25 13:46 DC 06/19/25 14:12 Sodium Chloride 1,000 ml @ 1,000 mls/hr Q1H ONCE IV 06/19/25 11:45 06/19/25 12:44 DC 06/19/25 12:26 Tamsulosin HCl 0.4 mg ONCE ONCE PO 06/19/25 13:45 06/19/25 13:46 DC 06/19/25 14:11 Departure 1 Departure Time of Disposition: 14:13 Impression: Primary Impression: Acute abdominal pain Additional Impressions: Kidney stone Hydronephrosis Qualified Codes: N13.2 - Hydronephrosis with renal and ureteral calculous obstruction Disposition: ADMITTED INPATIENT Admit to: Med Surg Condition: Guarded Critical Care Note Critical Care Time?: No Stability Stability form required: No I personally scribed for MANISHA BRISENO MD ([email or web address]) on 06/19/25 at 11:50. Electronically submitted by Marifer Sanchez ([facility]). I personally scribed for MANISHA BRISENO MD ([email or web address]) on 06/19/25 at 14:37. Electronically submitted by Shahla Bui ([facility]). MANISHA BRISENO MD Jun 19, 2025 11:50
[2025-06-19 11:56] LABS: Hematocrit 44.9 % (41.0-53.0); Hemoglobin 15.5 g/dL (13.5-17.5); Mean Corpuscular Hemoglobin 29.5 pg (28.0-32.0); Mean Corpuscular Volume 85.8 fL (80.0-100.0); Nucleated Red Blood Cells % 0.0 %
[2025-06-19 12:06] LABS: Chloride 103 mmol/L (98-107); Potassium 4.1 mmol/L (3.5-5.1); Sodium 142 mmol/L (136-145)
[2025-06-19 12:07] LABS: Anion Gap 9 (5-15); Carbon Dioxide 30 mmol/L (20-31)
[2025-06-19 12:08] LABS: Calcium 9.5 mg/dL (8.7-10.4)
[2025-06-19 12:12] LABS: BUN/Creatinine Ratio 8.6 (10.0-20.0)
[2025-06-19 12:15] LABS: Blood Urea Nitrogen 8 mg/dL (9-23); Glucose 110 mg/dL (74-106)
--- NOTE | 2025-06-19 12:18 | DVH ---
CLINICAL INFORMATION: Renal stone. TECHNIQUE: Axial CT images of the abdomen and pelvis were obtained without IV contrast. Coronal and s agittal reformatted images were obtained, reviewed, and stored. Evaluation of the parenchymal organs is limited without IV contrast. Evaluation of the bowel and mesentery is limited without oral contras t. All CT scans at this medical facility are performed using dose modulation techniques as appropriat e to a performed exam including the following: Automated exposure control was utilized; adjustment of the MA and/or KV according to patient size; and use of iterative reconstruction technique. CTDIvol = 10.48 mGy DLP = 604.17 mGy-cm COMPARISON: None. FINDINGS: There is prominent beam hardening artifact and mild motion artifact limiting evaluation. Lung bases: Dependent atelectasis in the lower lobes. Liver: Grossly unremarkable given the limitations of the examination. Biliary: No calcified gallstones or biliary ductal dilatation. Spleen: Unremarkable. Pancreas: Grossly unremarkable in its noncontrast enhanced appearance. Adrenal glands: Unremarkable. No mass. Kidneys: Mild to moderate left hydronephrosis and hydroureter with 4 mm obstructing calculus at the l eft ureterovesical junction. Questionable punctate nonobstructing left renal calculus at the mid to u pper pole of the left kidney. There is are a few small nonobstructing right renal calculi, with the l argest measuring up to 2 mm. Aorta/Vascular: No aneurysm or significant calcification. Retroperitoneum: No mass or lymphadenopathy. Bowel/mesentery: No small bowel obstruction. No free air or free fluid. Appendix is visualized and ap pears unremarkable. Pelvic organs: Grossly unremarkable. Bladder: Moderate circumferential thickening of the bladder wall. Obstructing calculus at the left ur eterovesical junction as described above. Abdominal wall: Small fat containing indirect left inguinal hernia extending into the inguinal canal. Bones: No acute fracture or suspicious intraosseous lesion. IMPRESSION: 1. [id number] left hydronephrosis with obstructing 4 mm calculus in the left ureterovesical kesha ction. 2. Additional small bilateral nonobstructing renal calculi. 3. Moderate circumferential thickening of the bladder wall. Correlate clinically to exclude cystitis . 4. Small fat containing indirect left inguinal hernia. 5. Additional findings as described above.
[2025-06-19] MEDS: SODIUM CHLORIDE 0.9% 1,000 ML IV ONE (12:26)
[2025-06-19] MEDS: KETOROLAC TROMETH 30 MG/ML 1ML VIAL IV ONE (12:26)
[2025-06-19] MEDS: TAMSULOSIN HYDROCHLORIDE 0.4 MG CAP PO ONE (14:11)
[2025-06-19] MEDS: MORPHINE SULFATE 4 MG/ML SYR/VIAL IV ONE (14:12)
[2025-06-19] MEDS: ONDANSETRON HCL 4 MG/2 ML VIAL IV ONE (14:12)
[2025-06-19 14:16] VITALS: BP 141/84; PULSE 63; RESP 18; TEMP 98.2; O2SAT 99
[2025-06-19] MEDS ORDERED: SODIUM CHLORIDE 0.9% 1,000 ML IV ONE (17:45)
[2025-06-19] MEDS ORDERED: MORPHINE SULFATE INJ 2 MG/ml SYRG IV PRN (21:15)
[2025-06-19] MEDS ORDERED: DOCUSATE SOD 100 MG CAP PO PRN (21:15)
[2025-06-19] MEDS ORDERED: HYDROcodone-ACET 5/325MG TAB PO PRN (21:15)
[2025-06-19] MEDS ORDERED: ACETAMINOPHEN 325 MG TAB PO PRN (21:15)
[2025-06-19] MEDS ORDERED: ONDANSETRON HCL 4 MG/2 ML VIAL IV PRN (21:15)
[2025-06-19] MEDS: SODIUM CHLOR 0.9% PF (SALINE LOCK) 10ML VIAL/SYR IV SCH (22:07)
[2025-06-20] MEDS ORDERED: TAMSULOSIN HYDROCHLORIDE 0.4 MG CAP PO SCH (18:00)
== END 2025-06-19 22:44 | disposition left against medical advice (07) ==
LOC: ER 11:30
DX: N13.2 Hydronephrosis with renal and ureteral calculous obstruction (principal); R10.9 Unspecified abdominal pain; Z79.899 Other long term (current) drug therapy
CPT/HCPCS: 36415; 74176; 80048; 85025; 96361; 96374; 96375; 99285; J1885; J2270; J2405; J7030